=== PATIENT | male | born 1965 | race Caucasian/White ===

== ENCOUNTER 2018-05-16 16:48 | Inpatient (IN) | payer MEDICAID ==
[~2018-05-16] VITALS: Ht 172.7 cm; Wt 77.6 kg
[2018-05-16] MEDS ORDERED: FOLIC ACID 1 MG, THIAMINE HCL 100 MG, MVI, ADULT NO.1 10 ML in DEXTROSE 5% WATER 1,000 ML IV ONE ×4 (17:45)
[2018-05-16] MEDS ORDERED: ONDANSETRON HCL 4MG/2ML INJ IV ONE (17:45)
[2018-05-16] MEDS ORDERED: LORAZEPAM 2MG/ML CPJ IV ONE ×3 (17:45→23:45)
[2018-05-16 19:36] LABS: BASOPHILS % 1.3 % (0.0-2.0); CHLORIDE 92 mEq/L (98-107); EOSINOPHILS % 0.2 % (0.0-5.0); HEMATOCRIT. 34.6 % (42.0-52.0); HEMOGLOBIN. 11.9 g/dL (14.0-18.0); LYMPHOCYTES % 7.5 % (20.0-50.0); MEAN CORPUSCULAR HEMOGLOBIN 34.7 pg (28.0-32.0); MEAN CORPUSCULAR VOLUME 100.8 fL (80.0-94.0); MEAN PLATELET VOLUME 7.6 fl (7.4-10.4); MONOCYTES % 9.7 % (2.0-8.0); NEUTROPHILS % 81.3 % (40.0-76.0); PLATELET 892 x1000/uL (130-400); RED BLOOD CELL COUNT 3.43 mill/uL (4.7-6.1); RED CELL DISTRIBUTION WIDTH 14.3 % (11.6-14.6)
[2018-05-16 19:42] LABS: ETHANOL BLOOD < 10 mg/dL
[2018-05-16] MEDS ORDERED: CHLORDIAZEPOXIDE 25MG CAPSULE PO ONE ×2 (20:00→23:45)
[2018-05-16 21:44] LABS: CLARITY URINE CLEAR (CLEAR); COLOR URINE YELLOW (YELLOW); KETONES URINE NEGATIVE (NEGATIVE); LEUKOCYTE ESTERASE URINE NEGATIVE (NEGATIVE); NITRITE URINE NEGATIVE (NEGATIVE); OCCULT BLOOD URINE TRACE (NEGATIVE); PH URINE 7.5 (4.5-8.0); PROTEIN URINE TRACE (NEGATIVE); SPECIFIC GRAVITY URINE 1.008 (1.005-1.030); UROBILINOGEN URINE 0.2 E.U./dL (0.2-1.0)
[2018-05-16 21:55] LABS: *AMPHETAMINES SCREEN URINE NEGATIVE (NEGATIVE); *BARBITURATES SCREEN URINE NEGATIVE (NEGATIVE); *BENZODIAZEPINES SCREEN URINE PRESUMTIVE POSITIVE (NEGATIVE); *COCAINE SCREEN URINE NEGATIVE (NEGATIVE); METHADONE URINE SCREEN NEGATIVE (NEGATIVE); OPIATES URINE SCREEN NEGATIVE (NEGATIVE); PHENCYCLIDINE URINE SCREEN NEGATIVE (NEGATIVE)
[2018-05-16 21:56] LABS: CANNABINOID URINE SCREEN NEGATIVE (NEGATIVE)
[2018-05-17 03:05] LABS: CREATINE KINASE 78 IU/L (39-308)
[2018-05-17 08:00] VITALS: BP 136/62
[2018-05-17] MEDS ORDERED: LEVETIRACETAM 500 MG in SODIUM CHLORIDE 0.9% 100 ML IV SCH (08:45)
[2018-05-17] MEDS: ACETAMINOPHEN 650MG/20.3ML UDC PO PRN (11:05)
[2018-05-17] MEDS: ENOXAPARIN 40MG/0.4ML SYR SUBCUT SCH (11:05)
[2018-05-17 11:55] LABS: BASOPHILS % 0.7 % (0.0-2.0); EOSINOPHILS % 0.7 % (0.0-5.0); HEMOGLOBIN. 10.9 g/dL (14.0-18.0); LYMPHOCYTES % 7.2 % (20.0-50.0); MEAN CORPUSCULAR HEMOGLOBIN 34.8 pg (28.0-32.0); MEAN CORPUSCULAR VOLUME 99.3 fL (80.0-94.0); MEAN PLATELET VOLUME 7.2 fl (7.4-10.4); MONOCYTES % 11.3 % (2.0-8.0); NEUTROPHILS % 80.1 % (40.0-76.0); PLATELET 822 x1000/uL (130-400); RED BLOOD CELL COUNT 3.12 mill/uL (4.7-6.1); RED CELL DISTRIBUTION WIDTH 14.7 % (11.6-14.6)
[2018-05-17 12:00] VITALS: BP 111/69
[2018-05-17 12:10] LABS: CHLORIDE 92 mEq/L (98-107)
[2018-05-17] MEDS: LEVETIRACETAM 500MG in SODIUM CHLORIDE 0.9% 100ML IV SCH ×2 (12:59→21:57)
[2018-05-17] MEDS: FOLIC ACID 1 MG, THIAMINE HCL 100 MG, MVI, ADULT NO.1 10 ML in DEXTROSE 5% WATER 1,000 ML IV SCH ×4 (13:58)
[2018-05-17 16:00] VITALS: BP 111/61
[2018-05-17] MEDS: LORAZEPAM 2MG/ML CPJ IV PRN (18:35)
[2018-05-17 20:00] VITALS: BP 135/73
[2018-05-18] VITALS: BP 121/67
[2018-05-18] MEDS: FOLIC ACID 1 MG, THIAMINE HCL 100 MG, MVI, ADULT NO.1 10 ML in DEXTROSE 5% WATER 1,000 ML IV SCH ×4 (02:32)
[2018-05-18 04:00] VITALS: BP 105/64
[2018-05-18 08:00] VITALS: BP 120/67
[2018-05-18] MEDS: LEVETIRACETAM 500MG in SODIUM CHLORIDE 0.9% 100ML IV SCH ×2 (10:06→21:08)
[2018-05-18] MEDS: ENOXAPARIN 40MG/0.4ML SYR SUBCUT SCH (10:06)
[2018-05-18] MEDS: ACETAMINOPHEN 650MG/20.3ML UDC PO PRN (10:10)
[2018-05-18] MEDS: LORAZEPAM 2MG/ML CPJ IV PRN ×2 (10:10→22:15)
[2018-05-18] MEDS ORDERED: SODIUM CHLORIDE 3% 500 ML IV NR (11:00)
[2018-05-18] MEDS: CEFTRIAXONE 1 G PREMIX 50 ML IV SCH (11:09)
[2018-05-18 12:00] VITALS: BP 129/72
[2018-05-18 16:00] VITALS: BP 116/63
[2018-05-18] MEDS ORDERED: DIPHENHYDRAMINE 25MG CAPSULE PO NR (17:57)
[2018-05-18 18:19] LABS: BASOPHILS % 1.3 % (0.0-2.0); EOSINOPHILS % 1.2 % (0.0-5.0); HEMATOCRIT. 32.8 % (42.0-52.0); LYMPHOCYTES % 14.8 % (20.0-50.0); MEAN CORPUSCULAR VOLUME 101.2 fL (80.0-94.0); MEAN PLATELET VOLUME 7.6 fl (7.4-10.4); MONOCYTES % 12.1 % (2.0-8.0); NEUTROPHILS % 70.6 % (40.0-76.0); RED BLOOD CELL COUNT 3.24 mill/uL (4.7-6.1); RED CELL DISTRIBUTION WIDTH 14.7 % (11.6-14.6)
[2018-05-18 18:25] LABS: PLATELET 1057 x1000/uL (130-400)
[2018-05-18 20:00] VITALS: BP 105/69
[2018-05-18] MEDS: TRIAMCINOLONE ACETONIDE 0.1 % OINT 15GM TOP SCH (21:03)
[2018-05-19] VITALS: BP 123/70
[2018-05-19 04:00] VITALS: BP 109/60
[2018-05-19 06:09] LABS: BASOPHILS % 0.8 % (0.0-2.0); EOSINOPHILS % 1.4 % (0.0-5.0); HEMATOCRIT. 29.7 % (42.0-52.0); HEMOGLOBIN. 10.5 g/dL (14.0-18.0); LYMPHOCYTES % 19.4 % (20.0-50.0); MEAN CORPUSCULAR HEMOGLOBIN 35.1 pg (28.0-32.0); MEAN CORPUSCULAR VOLUME 99.4 fL (80.0-94.0); MEAN PLATELET VOLUME 7.3 fl (7.4-10.4); NEUTROPHILS % 66.4 % (40.0-76.0); PLATELET 995 x1000/uL (130-400); RED BLOOD CELL COUNT 2.99 mill/uL (4.7-6.1)
[2018-05-19 07:38] LABS: CHLORIDE 99 mEq/L (98-107)
[2018-05-19 08:00] VITALS: BP 124/64
[2018-05-19] MEDS: FOLIC ACID 1 MG, THIAMINE HCL 100 MG, MVI, ADULT NO.1 10 ML in DEXTROSE 5% WATER 1,000 ML IV SCH ×4 (09:00)
[2018-05-19] MEDS: ACETAMINOPHEN 650MG/20.3ML UDC PO PRN ×2 (09:29→21:25)
[2018-05-19] MEDS: LEVETIRACETAM 500MG in SODIUM CHLORIDE 0.9% 100ML IV SCH ×2 (09:30→22:16)
[2018-05-19] MEDS: ENOXAPARIN 40MG/0.4ML SYR SUBCUT SCH (09:30)
[2018-05-19] MEDS: TRIAMCINOLONE ACETONIDE 0.1 % OINT 15GM TOP SCH ×3 (09:30→17:00)
[2018-05-19] MEDS: CEFTRIAXONE 1 G PREMIX 50 ML IV SCH (11:00)
[2018-05-19 12:00] VITALS: BP 119/62
[2018-05-19] MEDS ORDERED: METHYLPREDNISOLONE SOD SUCC 40 MG/ML VIAL IV SCH (12:30)
[2018-05-19] MEDS ORDERED: DIPHENHYDRAMINE 25MG CAPSULE PO SCH (12:30)
[2018-05-19 18:29] VITALS: BP 122/56
[2018-05-19 20:00] VITALS: BP 137/75
[2018-05-20] VITALS: BP 138/71
[2018-05-20] MEDS: LORAZEPAM 2MG/ML CPJ IV PRN (02:08)
[2018-05-20 04:00] VITALS: BP 122/76
[2018-05-20 08:00] VITALS: BP 132/74
[2018-05-20] MEDS: ENOXAPARIN 40MG/0.4ML SYR SUBCUT SCH (08:23)
[2018-05-20] MEDS: FOLIC ACID 1 MG, THIAMINE HCL 100 MG, MVI, ADULT NO.1 10 ML in DEXTROSE 5% WATER 1,000 ML IV SCH ×4 (09:00)
[2018-05-20] MEDS: TRIAMCINOLONE ACETONIDE 0.1 % OINT 15GM TOP SCH (09:00)
== END 2018-05-20 11:45 | disposition home or self-care (01) | DRG 53 ==
LOC: ER 16:48 → 5WST 05-17 00:11 → ENRESERV 05-17 03:21 → CANRESERV 05-17 03:21 → ENRESERV 05-17 04:44
PROVIDERS: ADMIT Internal Medicine Geriatric Medicine; ATTEND Internal Medicine Geriatric Medicine
DX: G40.909 Epilepsy, unspecified, not intractable, without status epilepticus (principal); F10.231 Alcohol dependence with withdrawal delirium; E44.0 Moderate protein-calorie malnutrition; I10 Essential (primary) hypertension; Z91.19 Patient's noncompliance with other medical treatment and regimen; R11.2 Nausea with vomiting, unspecified; E87.1 Hypo-osmolality and hyponatremia; D63.8 Anemia in other chronic diseases classified elsewhere; R00.0 Tachycardia, unspecified; D72.829 Elevated white blood cell count, unspecified; Z68.26 Body mass index [BMI] 26.0-26.9, adult
CPT/HCPCS: 36415; 71045; 80048; 80305; 80307; 80329; 82550; 83735; 84443; 93005; 96365; 96375; 99285; G0482; J0696; J1650; J1953; J2060; J2405; J3411; J3490; J7050; J7070; Q0163